=== PATIENT | female | born 1995 | race Caucasian/White ===

== ENCOUNTER 2017-02-03 16:39 | Emergency (ER) | payer MEDICAID ==
[2017-02-03 17:12] VITALS: BP 121/63; PULSE 77; RESP 19; TEMP 97.6; O2SAT 100
[2017-02-03] MEDS ORDERED: Albuterol-Ipratrop 3 mg / 0.5 (3 ml) UD INH STA (17:35)
--- NOTE | 2017-02-03 17:36 | ED PDOC ---
HPI: General Adult Time Seen by Provider: 02/03/17 17:20 Chief Complaint (Nursing): Flu-like Symptoms Chief Complaint (Provider): Cough, Nausea, Vomiting History Per: Patient History/Exam Limitations: no limitations Onset/Duration Of Symptoms: Days (x1) Current Symptoms Are (Timing): Still Present Additional Complaint(s): Concepción Clemens is a 21 year old female that presents to the ED with a chief complaint of coughing, post-tussive vomiting, nausea, and a sore throat that she has been experiencing for the past day. Patient denies any abdominal pain, dysuria, or sick contacts. She denies chest pain, SOB or FABIAN. No recent travel. Patient states she cannot keep down any liquids or solids. Past Medical History Reviewed: Historical Data, Nursing Documentation, Vital Signs Vital Signs: Last Vital Signs Temp 97.6 F 02/03/17 17:07 Pulse 77 02/03/17 17:07 Resp 19 02/03/17 17:07 BP 121/63 02/03/17 17:07 Pulse Ox 100 02/03/17 18:52 - Medical History PMH: No Chronic Diseases - Surgical History Surgical History: No Surg Hx - Family History Family History: States: No Known Family Hx - Living Arrangements Living Arrangements: With Family - Social History Current smoker - smoking cessation education provided: No Alcohol: None Drugs: Denies - Home Medications Home Medications: Ambulatory Orders Medication Instructions Recorded Acetaminophen [Tylenol] 325 mg PO Q6 PRN #30 tab 12/17/16 Naproxen [Naprosyn] 500 mg PO BID #20 tab 12/17/16 Albuterol HFA [Ventolin HFA 90 1 puff IH ASDIR #1 unit 02/03/17 mcg/actuation (8 g)] Azithromycin [Zithromax] 250 mg PO DAILY #6 tab 02/03/17 Benzonatate 200 mg PO TID PRN #20 capsule 02/03/17 Ondansetron [Zofran Odt] 4 mg PO ASDIR PRN #8 odt 02/03/17 - Allergies Allergies/Adverse Reactions: Allergies Allergy/AdvReac Type Severity Reaction Status Date / Time No Known Allergies Allergy Verified 11/17/16 04:34 Review of Systems ROS Statement: Except As Marked, All Systems Reviewed And Found Negative ENT: Positive for: Throat Pain (sore throat) Respiratory: Positive for: Cough Gastrointestinal: Positive for: Nausea, Vomiting. Negative for: Abdominal Pain Genitourinary Female: Negative for: Dysuria Neurological: Negative for: Headache, Dizziness Physical Exam - Reviewed Nursing Documentation Reviewed: Yes Vital Signs Reviewed: Yes - Physical Exam Appears: Positive for: Non-toxic, No Acute Distress Head Exam: Positive for: ATRAUMATIC, NORMOCEPHALIC Skin: Positive for: Normal Color, Warm Eye Exam: Positive for: Normal appearance, EOMI, PERRL ENT: Positive for: Pharyngeal Erythema, Tonsillar Swelling (bilaterally), Other (tonsillar erythema bilaterally, uvula midline). Negative for: Tonsillar Exudate (bilaterally) Neck: Positive for: Painless ROM Cardiovascular/Chest: Positive for: Regular Rate, Rhythm. Negative for: Murmur Respiratory: Positive for: Normal Breath Sounds, Wheezing (bilaterally) Gastrointestinal/Abdominal: Positive for: Soft. Negative for: Tenderness Lymphatic: Positive for: Adenopathy (bilateral anterior cervical lymph adenopathy) Neurologic/Psych: Positive for: Alert, Oriented - Laboratory Results Urine POC: Negative - ECG O2 Sat by Pulse Oximetry: 100 (RA) Pulse Ox Interpretation: Normal - Other Rad CXR X-Ray: Interpreted by Me, Viewed By Me X-Ray Interpretation: no active disease Nebulizer Treatments/Peak Flow - Duonebs Number of Bronchodilator Doses given?: 1 (duoneb) - Pre/Post Peak Flow Pre Treatment Peak Flow: 250 Post treatment Peak Flow: 300 - Steroid Treatment Steroid: Not Clinically Indicated - Clinical Response Clinical Response: Improved Medical Decision Making Medical Decision Making: Impression: Flu-Like Symptoms Plan: * Urine * Zofran 4 mg IM * Albuterol 3 ml INH * Nebulizer Treatment * Peak Flow Pre/Post Tx * Throat Culture * Flu Swab * Rapid Strep * Reevaluation Patient was able to tolerate water in ED with no further emesis. Nausea resolved. Patient is aware of all diagnostic testing results, all questions answered. Prescriptions given for Zithromax, Tessalon Perles, Ventolin inhaler and Zofran. Patient was advised to rest and drink plenty of fluids. She was advised to follow up with primary doctor in 2-3 days. Scribe Attestation: Documented by Nilsa Hernandez, acting as a scribe for Barb Tan PA-C. Provider Scribe Attestation: All medical record entries made by the Scribe were at my direction and personally dictated by me. I have reviewed the chart and agree that the record accurately reflects my personal performance of the history, physical exam, medical decision making, and the department course for this patient. I have also personally directed, reviewed, and agree with the discharge instructions and disposition. Disposition - Clinical Impression Clinical Impression: Bronchitis, Pharyngitis - Patient ED Disposition Is Patient to be Admitted: No Counseled Patient/Family Regarding: Studies Performed, Diagnosis, Need For Followup, Rx Given - Disposition Referrals: [facility] [Outside] Disposition: Routine/Home Disposition Time: 18:56 Condition: STABLE Additional Instructions: Take rx meds as directed. Take [id number] Tylenol or Advil for pain or body aches. Follow up in 2-3 days with primary care doctor or with clinic. Prescriptions: Albuterol HFA [Ventolin HFA 90 mcg/actuation (8 g)] 1 puff IH ASDIR #1 unit Azithromycin [Zithromax] 250 mg PO DAILY #6 tab Benzonatate 200 mg PO TID PRN #20 capsule PRN Reason: Cough Ondansetron [Zofran Odt] 4 mg PO ASDIR PRN #8 odt PRN Reason: Nausea/Vomiting Instructions: Acute Bronchitis (ED), Pharyngitis (ED) Forms: [facility] ED School/Work Excuse
[2017-02-03] MEDS ORDERED: Albuterol-Ipratrop 3 mg / 0.5 (3 ml) UD ONE (17:51)
--- NOTE | 2017-02-03 18:13 | RAD ---
HISTORY: Cough. COMPARISON: No prior. TECHNIQUE: Chest PA and lateral FINDINGS: LUNGS: No active pulmonary disease. PLEURA: No significant pleural effusion identified. No pneumothorax apparent. CARDIOVASCULAR: Normal. OSSEOUS STRUCTURES: No significant abnormalities. VISUALIZED UPPER ABDOMEN: Normal. OTHER FINDINGS: None. IMPRESSION: No active disease.
== END 2017-02-03 19:40 | disposition home or self-care (01) ==
LOC: H.ER 16:39
DX: J40 Bronchitis, not specified as acute or chronic (principal); R11.2 Nausea with vomiting, unspecified; J02.9 Acute pharyngitis, unspecified; R05 Cough
CPT/HCPCS: 71020; 81025; 87070; 87430; 87804; 94640; 96372; 99282; J2405

== ENCOUNTER 2017-10-27 22:02 | Observation (INO) | payer MEDICAID ==
[2017-10-27] MEDS ORDERED: Lactated Ringer's 1,000 ML IV STA (22:27)
--- NOTE | 2017-10-27 22:33 | ED PDOC ---
HPI: Abdomen Time Seen by Provider: 10/27/17 22:16 Chief Complaint (Nursing): Abdominal Pain Chief Complaint (Provider): RIGHT abd/flank pain History Per: Patient History/Exam Limitations: no limitations Onset/Duration Of Symptoms: Days (1) Outside of [place] travel?: Yes Current Symptoms Are (Timing): Still Present Location Of Pain/Discomfort: RLQ (radiating to RIGHT flank) Quality Of Discomfort: Aching, "Pain". denies: Sharp, Dull, Cramping, Burning, Stabbing Associated Symptoms: Urinary Symptoms (frequency for 1 week). denies: Fever, Chills, Nausea, Vomiting, Loss Of Appetite Exacerbating Factors: Supine Alleviating Factors: None Additional Complaint(s): Seen in [place] ER for abd pain in . Initially associated with RIGHT flank pain which has resolved. Found to have leuks in urine, concern for pyelonephritis, and transferred to this ER for SHIPPING AND RECEIVING evaluation. US performed in [place] with no abnormalities. Past Medical History Reviewed: Historical Data, Nursing Documentation, Vital Signs Vital Signs: Last Vital Signs Temp 99.1 F 10/27/17 22:06 Pulse 104 H 10/27/17 22:06 Resp 22 10/27/17 22:06 BP 98/51 L 10/27/17 22:06 Pulse Ox 100 10/27/17 22:36 - Medical History PMH: No Chronic Diseases - Family History Family History: States: Unknown Family Hx - Social History Current smoker - smoking cessation education provided: No - Immunization History Hx Tetanus Toxoid Vaccination: Yes Hx Influenza Vaccination: No (08/2015) Hx Pneumococcal Vaccination: No - Home Medications Home Medications: Ambulatory Orders Medication Instructions Recorded Nitrofurantoin Macrocrystals 100 mg PO BID #14 cap 08/07/17 [Macrobid] - Allergies Allergies/Adverse Reactions: Allergies Allergy/AdvReac Type Severity Reaction Status Date / Time No Known Allergies Allergy Verified 08/07/17 15:37 Review of Systems ROS Statement: Except As Marked, All Systems Reviewed And Found Negative (and as per HPI) Constitutional: Positive for: Chills. Negative for: Weakness, Malaise Gastrointestinal: Positive for: Abdominal Pain Genitourinary Female: Positive for: Dysuria, Frequency, Vaginal Discharge. Negative for: Vaginal Bleeding, Pelvic Pain Physical Exam - Reviewed Nursing Documentation Reviewed: Yes Vital Signs Reviewed: Yes - Physical Exam Appears: Positive for: Non-toxic, In Acute Distress (mild painful) Head Exam: Positive for: ATRAUMATIC, NORMOCEPHALIC Skin: Positive for: Warm, Dry Eye Exam: Positive for: EOMI, PERRL ENT: Positive for: Other (tacky mucus membranes) Neck: Positive for: Painless ROM, Supple Gastrointestinal/Abdominal: Positive for: Other (gravid uterus, mild ttp RIGHT pelvic area) Back: Positive for: R CVA Tenderness Extremity: Positive for: Normal ROM. Negative for: Deformity Lymphatic: Negative for: Adenopathy Neurologic/Psych: Positive for: Alert. Negative for: Motor/Sensory Deficits - ECG O2 Sat by Pulse Oximetry: 100 - Progress ED Course And Treament: evaluated by Dr Vallejo in ER who advised hospitalization for serial abdominal exams, and high risk of complications in pyelonephritis in . Disposition - Clinical Impression Clinical Impression: Pyelonephritis, Abdominal pain during - Disposition Disposition Time: 22:45 Condition: FAIR - Pt Status Changed To: Hospital Disposition Of: Observation - POA Present On Arrival: None
--- NOTE | 2017-10-27 23:21 | CP.PCM.HP ---
History of Present Illness - History of Present Illness History of Present Illness: 21 yo female at 16 weeks 3 days gestational age by LMP 07/04/17, presented to [place] ED, and was transferred to [place] ED today complaining of right sided back and pelvic pain. States the pain started this morning, and she was pain free yesterday. Rates pain 10/10, and states it is difficult for her to walk. care at [facility]. Next appt scheduled 11/07/17. ObGYN hx: menarche at age 13, period q28 days, 4 days duration. Denies hx STDs. L ovarian cyst in the past. ED course: -UA positive for moderate leuk esterase, moderate bacteria -CMP wnl -CBC no elevated wbc. anemia. -Received 1gm rocephin at [place] -Hydrated with LR -Blood bank: O pos, antibody neg -Ultrasound done at [place]: Ultrasound:FINDINGS: UTERUS: Single viable intrauterine gestation identified in variable lie with an anterior fundal placenta. No definite evidence to suggest placental abruption or previa at this time. Internal cervical os is closed with the cervix measuring 3.2 cm. No suspicious myometrial pathology evident grossly. The uterus is anteverted. The following mean biometry was obtained: BPD 4.0 cm corresponds to 18 weeks 0 days. HC 14.3 cm corresponds to 17 weeks 4 days. AC 111.3 cm corresponds to 17 weeks 3 days. FL 2.3 cm corresponds to 16 weeks 6 days. HC/AC ratio falls within normal range at 1.23. Average ultrasonic age is 17 weeks 3 days which is in agreement with menstrual dates of 16 weeks 3 days and also agrees with prior ultrasound 2016. cardiac activity is recorded at 143 beats per minute. biometry is limited with the four-chamber heart views submitted. The stomach appears unremarkable urinary bladder is identified. CERVIX: Measures 3.2 cm cm. Long and closed. No cervical abnormality seen. RIGHT OVARY: Not identified. LEFT OVARY: Not identified. FREE FLUID: None. OTHER FINDINGS: None. IMPRESSION: A single viable intrauterine gestation identified with average around age of 17 weeks 3 days which represents normal interval growth. Limited biometry. All biometry available on elective basis as clinically warranted. Present on Admission - Present on Admission Any Indicators Present on Admission: No Review of Systems - Review of Systems All systems: reviewed and no additional remarkable complaints except - Gastrointestinal Gastrointestinal: Abdominal Pain, Constipation - Genitourinary Genitourinary: Flank Pain - Musculoskeletal Musculoskeletal: Back Pain (R flank) Past Patient History - Infectious Disease Hx of Infectious Diseases: None - Past Social History Smoking Status: Never Smoked Alcohol: None Drugs: Denies - CARDIAC Hx Cardiac Disorders: No - PULMONARY Hx Respiratory Disorders: No - NEUROLOGICAL Hx Neurological Disorder: No - HEENT Hx HEENT Problems: No - RENAL Hx Chronic Kidney Disease: No - ENDOCRINE/METABOLIC Hx Endocrine Disorders: No - HEMATOLOGICAL/ONCOLOGICAL Hx Blood Disorders: No - INTEGUMENTARY Hx Dermatological Problems: No - MUSCULOSKELETAL/RHEUMATOLOGICAL Hx Musculoskeletal Disorders: No - GASTROINTESTINAL Hx Gastrointestinal Disorders: No - GENITOURINARY/GYNECOLOGICAL Hx Genitourinary Disorders: Yes Other/Comment: ovarian cyst - PSYCHIATRIC Hx Psychophysiologic Disorder: No Hx Substance Use: No - SURGICAL HISTORY Hx Surgeries: No - ANESTHESIA Hx Anesthesia: No Meds Allergies/Adverse Reactions: Allergies Allergy/AdvReac Type Severity Reaction Status Date / Time No Known Allergies Allergy Verified 08/07/17 15:37 Physical Exam - Constitutional Appears: Non-toxic - Head Exam Head Exam: ATRAUMATIC, NORMAL INSPECTION - Eye Exam Eye Exam: Normal appearance - Neck Exam Neck exam: Positive for: Normal Inspection - Respiratory Exam Respiratory Exam: Clear to Auscultation Bilateral, NORMAL BREATHING PATTERN - Cardiovascular Exam Cardiovascular Exam: REGULAR RHYTHM, +S1, +S2 - GI/Abdominal Exam GI & Abdominal Exam: Soft, Tenderness (mild tenderness, R sided, low pelvic) - Extremities Exam Extremities exam: Positive for: normal inspection. Negative for: calf tenderness, pedal edema, tenderness - Back Exam Back exam: CVA tenderness (R), NORMAL INSPECTION. absent: CVA tenderness (L) - Neurological Exam Neurological exam: Alert, CN II-XII Intact, Oriented x3 - Psychiatric Exam Psychiatric exam: Normal Affect - Skin Skin Exam: Dry, Intact Results - Vital Signs Recent Vital Signs: Last Vital Signs Temp 99.1 F 10/27/17 22:06 Pulse 104 H 10/27/17 22:06 Resp 22 10/27/17 22:06 BP 98/51 L 10/27/17 22:06 Pulse Ox 100 10/27/17 22:36 Assessment & Plan - Assessment and Plan (Free Text) Assessment: 21 yo F at 16+3 weeks gestation, with UTI; suspected pyelonephritis. s/p rocephin 1 gm x1. Plan: Admit/observe pt overnight. NPO CBC and CMP in am. Sennosides A&B for constipation. Reassess in morning. Pt seen/discussed w/ Dr. Vallejo.
[2017-10-28] MEDS: Lactated Ringer's 1,000 ML IV SCH ×3 (01:18→19:12)
[2017-10-28 07:37] LABS: BASO # 0.1 K/uL (0.0-0.2); BASO % 0.6 % (0.0-2.0); EOS # 0.3 K/uL (0.0-0.7); EOS % 2.6 % (0.0-4.0); HEMOGLOBIN 9.2 g/dL (12.0-16.0); LYMPH # 1.9 K/uL (1.0-4.3); LYMPH % 19.4 % (20.0-40.0); MEAN CORPUSCULAR HEMOGLOBIN 27.9 pg (27.0-31.0); MEAN CORPUSCULAR HGB CONC 32.5 g/dL (33.0-37.0); MEAN PLATELET VOLUME 11.8 fl (7.2-11.7); MONO # 0.7 K/uL (0.0-0.8); MONO % 6.9 % (0.0-10.0); NEUT # 7.1 K/uL (1.8-7.0); NEUT % 70.5 % (50.0-75.0); RBC 3.3 Mil/uL (3.80-5.20)
[2017-10-28 08:21] LABS: ALBUMIN 2.9 g/dL (3.5-5.0); ALT/SGPT 26 U/L (9-52); AST/SGOT 19 U/L (14-36); BLOOD UREA NITROGEN 12 mg/dl (7-17); CALCIUM 8.5 mg/dL (8.4-10.2); GFR AFRICAN-AMERICAN > 60; GFR NON-AFRICAN AMERICAN > 60
--- NOTE | 2017-10-28 15:00 | CP.PCM.CON ---
Addendum entered and electronically signed by Sandy Nguyen DO 10/28/17 19:00: MRI negative for appendicitis. No surgical intervention at this time. OK to start pt on CLD and ADAT to regular diet. Further mgmt as per primary and Obgyn teams. Thank you for this consult. Pt seen/examined and case DW with attending Original Note: <Sandy Nguyen - Last Filed: 10/28/17 19:00> History of Present Illness - History of Present Illness History of Present Illness: General surgery consult note for Dr. Rodriguez-Sandy Nguyen, PGY-1 Pt S & E at bedside. 21yo female (17 wks, 3 days gestation) consulted for RLQ and suprapubic abdominal pain x 1 day. Pt reports sudden onset of pain upon waking 1 day prior to evaluation, was very debilitated by it, could not walk. Pain is constant, variable intensity, cramping/sharp, radiates to back. Worsened with urinating and palpation. Admits to constipation (3 days, usually has daily BM) , had similar but less intense episode of abdominal pain earlier in her . Currently taking vitamins. Denies recent illness, N & V, diarrhea, anorexia, other complaints. No leukocytosis, afebrile, abdominal U/S did not visualize appendix. PMH: Denies PSH: Denies All:NKDA SH: Denies ETOH, tobacco or illicit drug use Review of Systems - Review of Systems All systems: reviewed and no additional remarkable complaints except - Constitutional Constitutional: Headache. absent: Chills, Fever - EENT Eyes: absent: Change in Vision Nose/Mouth/Throat: absent: Sore Throat - Cardiovascular Cardiovascular: absent: Chest Pain, Palpitations - Respiratory Respiratory: absent: Cough - Gastrointestinal Gastrointestinal: Abdominal Pain, Change in Bowel Habits, Constipation. absent : Heartburn, Hematemesis, Nausea, Vomiting - Genitourinary Genitourinary: absent: Dysuria, Urinary Frequency - Integumentary Integumentary: absent: Rash - Neurological Neurological: absent: Weakness - Psychiatric Psychiatric: Change in Appetite (decreased) Past Patient History - Infectious Disease Hx of Infectious Diseases: None - Past Medical History & Family History Past Medical History?: Yes - Past Social History Smoking Status: Never Smoked - CARDIAC Hx Cardiac Disorders: No - PULMONARY Hx Respiratory Disorders: No - NEUROLOGICAL Hx Neurological Disorder: No - HEENT Hx HEENT Problems: No - RENAL Hx Chronic Kidney Disease: No - ENDOCRINE/METABOLIC Hx Endocrine Disorders: No - HEMATOLOGICAL/ONCOLOGICAL Hx Blood Disorders: No - INTEGUMENTARY Hx Dermatological Problems: No - MUSCULOSKELETAL/RHEUMATOLOGICAL Hx Falls: No - GASTROINTESTINAL Hx Gastrointestinal Disorders: No - GENITOURINARY/GYNECOLOGICAL Hx Genitourinary Disorders: Yes Other/Comment: ovarian cyst - PSYCHIATRIC Hx Substance Use: No - SURGICAL HISTORY Hx Surgeries: No - ANESTHESIA Hx Anesthesia: No Meds Allergies/Adverse Reactions: Allergies Allergy/AdvReac Type Severity Reaction Status Date / Time No Known Allergies Allergy Verified 08/07/17 15:37 - Medications Medications: Current Medications Acetaminophen (Tylenol 325mg Tab) 650 mg PO Q4 PRN PRN Reason: Pain, moderate (4-7) Lactated Ringer's (Lactated Ringer's) 1,000 mls @ 125 mls/hr IV .Q8H [facility] Last Admin: 10/28/17 08:57 Dose: Not Given Sennosides (Senokot Tab) 8.6 mg PO HS [facility] Last Admin: 10/28/17 03:16 Dose: 8.6 mg Physical Exam - Constitutional Appears: Non-toxic, No Acute Distress - Head Exam Head Exam: ATRAUMATIC, NORMAL INSPECTION, NORMOCEPHALIC - Eye Exam Eye Exam: EOMI, Normal appearance - ENT Exam ENT Exam: Mucous Membranes Moist, Normal Exam - Neck Exam Neck exam: Positive for: Full Rom, Normal Inspection - Respiratory Exam Respiratory Exam: NORMAL BREATHING PATTERN - Cardiovascular Exam Cardiovascular Exam: REGULAR RHYTHM, +S1, +S2 - GI/Abdominal Exam GI & Abdominal Exam: Distended (), Soft, Tenderness (RLQ, suprapubic, LLQ). absent: Firm, Guarding - Extremities Exam Extremities exam: Positive for: normal inspection. Negative for: pedal edema - Back Exam Back exam: NORMAL INSPECTION. absent: paraspinal tenderness, vertebral tenderness - Neurological Exam Neurological exam: Alert, CN II-XII Intact, Oriented x3 - Psychiatric Exam Psychiatric exam: Normal Affect, Normal Mood - Skin Skin Exam: Dry, Intact, Normal Color, Warm Results - Vital Signs Recent Vital Signs: Last Vital Signs Temp 97.8 F 10/28/17 08:40 Pulse 94 H 10/28/17 08:40 Resp 18 10/28/17 08:40 BP 107/59 L 10/28/17 08:40 Pulse Ox 98 10/28/17 08:40 - Labs Result Diagrams: 10/28/17 07:00 10/28/17 07:00 Labs: Laboratory Results - last 24 hr 10/28/17 10/28/17 07:00 07:00 WBC 10.0 RBC 3.30 L Hgb 9.2 L Hct 28.4 L MCV 86.0 MCH 27.9 MCHC 32.5 L RDW 14.0 Plt Count 141 MPV 11.8 H Neut % (Auto) 70.5 Lymph % (Auto) 19.4 L Webster % (Auto) 6.9 Eos % (Auto) 2.6 Baso % (Auto) 0.6 Neut # (Auto) 7.1 H Lymph # (Auto) 1.9 Webster # (Auto) 0.7 Eos # (Auto) 0.3 Baso # (Auto) 0.1 Sodium 138 Potassium 4.0 Chloride 107 Carbon Dioxide 22 Anion Gap 13 BUN 12 Creatinine 0.6 L Est GFR ( Amer) > 60 Est GFR (Non-Af Amer) > 60 Random Glucose 82 Calcium 8.5 Total Bilirubin 0.2 AST 19 ALT 26 Alkaline Phosphatase 46 Total Protein 5.8 L Albumin 2.9 L Globulin 2.8 Albumin/Globulin Ratio 1.0 Assessment & Plan - Assessment and Plan (Free Text) Assessment: 21 yo female with abdominal pain Plan: FU MRI NPO for now IVF Pain control Further recs pending imaging/attending evaluation Would recommend placing pt on a bowel regimen DW attending Wendy, PGY-1 - Date & Time Date: 10/28/17 Time: 15:02 <Ant Rodriguez - Last Filed: 10/28/17 19:21> History of Present Illness - History of Present Illness History of Present Illness: Patient was seen and examined at the bedside. Agree with resident's note above. MRI results noted. Meds - Medications Medications: Current Medications Acetaminophen (Tylenol 325mg Tab) 650 mg PO Q4 PRN PRN Reason: Pain, moderate (4-7) Lactated Ringer's (Lactated Ringer's) 1,000 mls @ 125 mls/hr IV .Q8H [facility] Last Admin: 10/28/17 19:12 Dose: 125 mls/hr Sennosides (Senokot Tab) 8.6 mg PO HS [facility] Last Admin: 10/28/17 03:16 Dose: 8.6 mg Results - Vital Signs Recent Vital Signs: Last Vital Signs Temp 98.8 F 10/28/17 16:15 Pulse 91 H 10/28/17 16:15 Resp 18 10/28/17 16:15 BP 104/63 10/28/17 16:15 Pulse Ox 100 10/28/17 16:15 - Labs Result Diagrams: 10/28/17 07:00 10/28/17 07:00 Labs: Laboratory Results - last 24 hr 10/28/17 10/28/17 07:00 07:00 WBC 10.0 RBC 3.30 L Hgb 9.2 L Hct 28.4 L MCV 86.0 MCH 27.9 MCHC 32.5 L RDW 14.0 Plt Count 141 MPV 11.8 H Neut % (Auto) 70.5 Lymph % (Auto) 19.4 L Webster % (Auto) 6.9 Eos % (Auto) 2.6 Baso % (Auto) 0.6 Neut # (Auto) 7.1 H Lymph # (Auto) 1.9 Webster # (Auto) 0.7 Eos # (Auto) 0.3 Baso # (Auto) 0.1 Sodium 138 Potassium 4.0 Chloride 107 Carbon Dioxide 22 Anion Gap 13 BUN 12 Creatinine 0.6 L Est GFR ( Amer) > 60 Est GFR (Non-Af Amer) > 60 Random Glucose 82 Calcium 8.5 Total Bilirubin 0.2 AST 19 ALT 26 Alkaline Phosphatase 46 Total Protein 5.8 L Albumin 2.9 L Globulin 2.8 Albumin/Globulin Ratio 1.0 Assessment & Plan - Assessment and Plan (Free Text) Plan: - Advance diet as tolerated - No evidence of appendicitis on the MRI and at present time patient states that abdominal pain is much better - No general surgery intervention at present time - Will follow
--- NOTE | 2017-10-28 16:16 | MRI ---
PROCEDURE: HISTORY: r/o appendicitis, COMPARISON: TECHNIQUE: FINDINGS: Evaluation demonstrates a gravid uterus. No gross abdominal pelvic visceral abnormality is observed. There is no significant pelvic ascites. There is no gross evidence of appendicitis. IMPRESSION: No gross evidence of appendicitis. Carotid uterus. Please note that this examination does not assess the helpful or a the viability of the fetus.
--- NOTE | 2017-10-28 16:18 | US ---
HISTORY: RLQ pain, COMPARISON: None. TECHNIQUE: Sonographic evaluation of the abdomen. FINDINGS: LIVER: Measures cm. Normal echogenicity of the liver parenchyma. No mass. No intrahepatic bile duct dilatation. GALLBLADDER: Unremarkable. No gallstones. COMMON BILE DUCT: Measures mm. No stones. No dilatation. PANCREAS: Unremarkable as visualized. No mass. No ductal dilatation. RIGHT KIDNEY: Measures cm. Normal echogenicity. No calculus, mass, or hydronephrosis. LEFT KIDNEY: Measures cm. Normal echogenicity. No calculus, mass, or hydronephrosis. SPLEEN: Normal in size and contour. No mass. AORTA: No aneurysmal dilatation. IVC: Unremarkable. OTHER FINDINGS: None. IMPRESSION: Unremarkable abdominal sonogram.
--- NOTE | 2017-10-28 19:00 | CP.PCM.PN ---
Subjective - Date & Time of Evaluation Date of Evaluation: 10/28/17 Time of Evaluation: 09:00 - Subjective Subjective: No acute overnight events. Pt seen and evaluated at the bedside this morning. Reports that her abdominal pain has improved since yesterday. She states that she is having mild dysuria and urinary frequency. No BM in 3 days. Denies fever , chills n/v. Pt states that she is hungry and would like to eat. Objective - Vital Signs/Intake and Output Vital Signs (last 24 hours): Temp Pulse Resp BP Pulse Ox 98.8 F 91 H 18 104/63 100 10/28/17 16:15 10/28/17 16:15 10/28/17 16:15 10/28/17 16:15 10/28/17 16:15 - Medications Medications: Current Medications Acetaminophen (Tylenol 325mg Tab) 650 mg PO Q4 PRN PRN Reason: Pain, moderate (4-7) Lactated Ringer's (Lactated Ringer's) 1,000 mls @ 125 mls/hr IV .Q8H [facility] Last Admin: 10/28/17 08:57 Dose: Not Given Sennosides (Senokot Tab) 8.6 mg PO HS [facility] Last Admin: 10/28/17 03:16 Dose: 8.6 mg - Labs Labs: 10/28/17 07:00 10/28/17 07:00 - Constitutional Appears: Well, Non-toxic, No Acute Distress - Respiratory Exam Respiratory Exam: Clear to Ausculation Bilateral - Cardiovascular Exam Cardiovascular Exam: RRR, +S1, +S2. absent: Murmur - GI/Abdominal Exam GI & Abdominal Exam: Soft, Tenderness (Tender to palpation in RLQ, LRQ, Mild R. CVA tenderness, no rebound tenderness), Normal Bowel Sounds. absent: Distended , Firm, Guarding, Rigid, Organomegaly Additional comments: Gravid - Extremities Exam Extremities Exam: absent: Calf Tenderness - Back Exam Back Exam: CVA tenderness (R) (Mild) - Neurological Exam Neurological Exam: Alert, Awake, Oriented x3 - Psychiatric Exam Psychiatric exam: Normal Affect Assessment and Plan - Assessment and Plan (Free Text) Assessment: Pt is a G1PO with IUP at 6wks presenting with acute RLQ, urinary symptoms. Pain-improving Vitals stable overnight, afebrile No leukocytosis Transvaginal US wnl Abdominal US wnl MRI- no acute appendicitis General Surgery Consult appreciated Plan: Continue to monitor patient. Will advance diet. Reassess pt in the am. Pain, controlled. F/U Urinalysis and UCx. Discussed case with OB Attending, Dr. Suero
[2017-10-29 00:34] VITALS: O2SAT 99
[2017-10-29 00:51] LABS: SQUAMOUS EPITHIAL 19 /hpf (0-5); URINE BACTERIA MOD (<OCC); URINE BILIRUBIN NEGATIVE (NEGATIVE); URINE BLOOD NEGATIVE (NEGATIVE); URINE CLARITY CLOUDY (Clear); URINE COLOR YELLOW (YELLOW); URINE GLUCOSE (UA) NEG (Normal); URINE LEUKOCYTE ESTERASE LARGE Leu/uL (Negative); URINE NITRATE NEGATIVE (NEGATIVE); URINE PROTEIN NEGATIVE (NEGATIVE); URINE UROBILINOGEN 0.2-1.0 mg/dL (0.2-1.0)
[2017-10-29 08:12] VITALS: BP 89/56; PULSE 82; RESP 18; TEMP 98
--- NOTE | 2017-10-29 11:13 | CP.PCM.PN ---
Subjective - Date & Time of Evaluation Date of Evaluation: 10/29/17 Time of Evaluation: 09:45 - Subjective Subjective: General Surgeyr Dr. Rodriguez Pt S&E @bedside. NAEO. pt has no complaints. denies abd pain, N/V, F/C. tolerating regular diet. Objective - Vital Signs/Intake and Output Vital Signs (last 24 hours): Temp Pulse Resp BP Pulse Ox 98.0 F 82 18 89/56 L 99 10/29/17 08:11 10/29/17 08:11 10/29/17 08:11 10/29/17 08:11 10/29/17 08:11 - Medications Medications: Current Medications Acetaminophen (Tylenol 325mg Tab) 650 mg PO Q4 PRN PRN Reason: Pain, moderate (4-7) Lactated Ringer's (Lactated Ringer's) 1,000 mls @ 125 mls/hr IV .Q8H [facility] Last Admin: 10/28/17 19:12 Dose: 125 mls/hr Sennosides (Senokot Tab) 8.6 mg PO HS [facility] Last Admin: 10/28/17 21:37 Dose: 8.6 mg - Labs Labs: 10/28/17 07:00 10/28/17 07:00 - Constitutional Appears: Non-toxic, No Acute Distress - Head Exam Head Exam: NORMAL INSPECTION - Eye Exam Eye Exam: Normal appearance - ENT Exam ENT Exam: Mucous Membranes Moist - Respiratory Exam Respiratory Exam: NORMAL BREATHING PATTERN. absent: Accessory Muscle Use, Respiratory Distress - GI/Abdominal Exam GI & Abdominal Exam: Soft. absent: Distended, Tenderness - Extremities Exam Extremities Exam: Normal Inspection - Neurological Exam Neurological Exam: Alert, Awake, Oriented x3 - Psychiatric Exam Psychiatric exam: Normal Affect, Normal Mood - Skin Skin Exam: Dry, Intact, Normal Color, Warm Assessment and Plan - Assessment and Plan (Free Text) Assessment: 21 y/o F w/ resolved RLQ abd pain - Plan: - No surgical intervention at this time - ADAT - Further management as per PMD and Obgyn teams. - pt cleared for discharge from surgical standpoint Pt discussed w/ Dr. Rodriguez
--- NOTE | 2017-10-29 11:50 | CP.PCM.DIS ---
Addendum entered and electronically signed by Ubaldo Nugyen MD 10/29/17 12:51: Clarification: Pt is 17 weeks EGA. not 6. Original Note: <Ubaldo Nguyen - Last Filed: 10/29/17 11:50> Provider - Provider Date of Admission: 10/27/17 22:50 Attending physician: Elizabeth Vallejo MD Time Spent in preparation of Discharge (in minutes): 25 Hospital Course - Lab Results Lab Results: Most Recent Lab Values WBC 10.0 K/uL (4.8-10.8) 10/28/17 07:00 RBC 3.30 Mil/uL (3.80-5.20) L 10/28/17 07:00 Hgb 9.2 g/dL (12.0-16.0) L 10/28/17 07:00 Hct 28.4 % (34.0-47.0) L 10/28/17 07:00 MCV 86.0 fl (81.0-99.0) 10/28/17 07:00 MCH 27.9 pg (27.0-31.0) 10/28/17 07:00 MCHC 32.5 g/dL (33.0-37.0) L 10/28/17 07:00 RDW 14.0 % (11.5-14.5) 10/28/17 07:00 Plt Count 141 K/uL (130-400) 10/28/17 07:00 MPV 11.8 fl (7.2-11.7) H 10/28/17 07:00 Neut % (Auto) 70.5 % (50.0-75.0) 10/28/17 07:00 Lymph % (Auto) 19.4 % (20.0-40.0) L 10/28/17 07:00 [place] % (Auto) 6.9 % (0.0-10.0) 10/28/17 07:00 Eos % (Auto) 2.6 % (0.0-4.0) 10/28/17 07:00 Baso % (Auto) 0.6 % (0.0-2.0) 10/28/17 07:00 Neut # (Auto) 7.1 K/uL (1.8-7.0) H 10/28/17 07:00 Lymph # (Auto) 1.9 K/uL (1.0-4.3) 10/28/17 07:00 [place] # (Auto) 0.7 K/uL (0.0-0.8) 10/28/17 07:00 Eos # (Auto) 0.3 K/uL (0.0-0.7) 10/28/17 07:00 Baso # (Auto) 0.1 K/uL (0.0-0.2) 10/28/17 07:00 Sodium 138 mmol/l (132-148) 10/28/17 07:00 Potassium 4.0 MMOL/L (3.6-5.0) 10/28/17 07:00 Chloride 107 mmol/L (98-107) 10/28/17 07:00 Carbon Dioxide 22 mmol/L (22-30) 10/28/17 07:00 Anion Gap 13 (10-20) 10/28/17 07:00 BUN 12 mg/dl (7-17) 10/28/17 07:00 Creatinine 0.6 mg/dl (0.7-1.2) L 10/28/17 07:00 Est GFR ( Amer) > 60 10/28/17 07:00 Est GFR (Non-Af Amer) > 60 10/28/17 07:00 Random Glucose 82 mg/dL (65-105) 10/28/17 07:00 Calcium 8.5 mg/dL (8.4-10.2) 10/28/17 07:00 Total Bilirubin 0.2 mg/dl (0.2-1.3) 10/28/17 07:00 AST 19 U/L (14-36) 10/28/17 07:00 ALT 26 U/L (9-52) 10/28/17 07:00 Alkaline Phosphatase 46 U/L (38-126) 10/28/17 07:00 Total Protein 5.8 G/DL (6.3-8.2) L 10/28/17 07:00 Albumin 2.9 g/dL (3.5-5.0) L 10/28/17 07:00 Globulin 2.8 gm/dL (2.2-3.9) 10/28/17 07:00 Albumin/Globulin Ratio 1.0 (1.0-2.1) 10/28/17 07:00 Urine Color Yellow (YELLOW) 10/28/17 23:52 Urine Clarity Cloudy (Clear) 10/28/17 23:52 Urine pH 7.0 (5.0-8.0) 10/28/17 23:52 Ur Specific [place] 1.015 (1.003-1.030) 10/28/17 23:52 Urine Protein Negative mg/dL (NEGATIVE) 10/28/17 23:52 Urine Glucose (UA) Neg mg/dL (Normal) 10/28/17 23:52 Urine Ketones 20 mg/dL (NEGATIVE) 10/28/17 23:52 Urine Blood Negative (NEGATIVE) 10/28/17 23:52 Urine Nitrate Negative (NEGATIVE) 10/28/17 23:52 Urine Bilirubin Negative (NEGATIVE) 10/28/17 23:52 Urine Urobilinogen 0.2-1.0 mg/dL (0.2-1.0) 10/28/17 23:52 Ur Leukocyte Esterase Large Kimberly/uL (Negative) 10/28/17 23:52 Urine RBC (Auto) 9 /hpf (0-3) H 10/28/17 23:52 Urine Microscopic WBC 17 /hpf (0-5) H 10/28/17 23:52 Ur Squamous Epith Cells 19 /hpf (0-5) H 10/28/17 23:52 Urine Bacteria Mod (<OCC) H 10/28/17 23:52 - Hospital Course Hospital Course: 21 yo IUP EGA 6 wks presented with RLQ and lumbar pain. Abx: Rocephin. UC& S. Cleared by surgery. Pt dc home and has f/u appt at [facility] 11/07/2017. Discharge Exam - Head Exam Head Exam: NORMAL INSPECTION Discharge Plan - Follow Up Plan Condition: FAIR Disposition: HOME/ ROUTINE Instructions: Urinary Tract Infection in Women (DC), Urinary Tract Infection in Men (DC), Dysuria (GEN) Additional Instructions: Drink plenty of PO fluids May take Senokot or Metamucil ( over the counter)at home for constipation, if No BM return to ER if needed [facility]- Tel Phone #- [phone] or for OB clinic- [phone] <Margarette Venegas - Last Filed: 10/29/17 13:32> Provider - Provider Date of Admission: 10/27/17 22:50 Attending physician: Elizabeth Vallejo MD Hospital Course - Lab Results Lab Results: Most Recent Lab Values WBC 10.0 K/uL (4.8-10.8) 10/28/17 07:00 RBC 3.30 Mil/uL (3.80-5.20) L 10/28/17 07:00 Hgb 9.2 g/dL (12.0-16.0) L 10/28/17 07:00 Hct 28.4 % (34.0-47.0) L 10/28/17 07:00 MCV 86.0 fl (81.0-99.0) 10/28/17 07:00 MCH 27.9 pg (27.0-31.0) 10/28/17 07:00 MCHC 32.5 g/dL (33.0-37.0) L 10/28/17 07:00 RDW 14.0 % (11.5-14.5) 10/28/17 07:00 Plt Count 141 K/uL (130-400) 10/28/17 07:00 MPV 11.8 fl (7.2-11.7) H 10/28/17 07:00 Neut % (Auto) 70.5 % (50.0-75.0) 10/28/17 07:00 Lymph % (Auto) 19.4 % (20.0-40.0) L 10/28/17 07:00 [place] % (Auto) 6.9 % (0.0-10.0) 10/28/17 07:00 Eos % (Auto) 2.6 % (0.0-4.0) 10/28/17 07:00 Baso % (Auto) 0.6 % (0.0-2.0) 10/28/17 07:00 Neut # (Auto) 7.1 K/uL (1.8-7.0) H 10/28/17 07:00 Lymph # (Auto) 1.9 K/uL (1.0-4.3) 10/28/17 07:00 [place] # (Auto) 0.7 K/uL (0.0-0.8) 10/28/17 07:00 Eos # (Auto) 0.3 K/uL (0.0-0.7) 10/28/17 07:00 Baso # (Auto) 0.1 K/uL (0.0-0.2) 10/28/17 07:00 Sodium 138 mmol/l (132-148) 10/28/17 07:00 Potassium 4.0 MMOL/L (3.6-5.0) 10/28/17 07:00 Chloride 107 mmol/L (98-107) 10/28/17 07:00 Carbon Dioxide 22 mmol/L (22-30) 10/28/17 07:00 Anion Gap 13 (10-20) 10/28/17 07:00 BUN 12 mg/dl (7-17) 10/28/17 07:00 Creatinine 0.6 mg/dl (0.7-1.2) L 10/28/17 07:00 Est GFR ( Amer) > 60 10/28/17 07:00 Est GFR (Non-Af Amer) > 60 10/28/17 07:00 Random Glucose 82 mg/dL (65-105) 10/28/17 07:00 Calcium 8.5 mg/dL (8.4-10.2) 10/28/17 07:00 Total Bilirubin 0.2 mg/dl (0.2-1.3) 10/28/17 07:00 AST 19 U/L (14-36) 10/28/17 07:00 ALT 26 U/L (9-52) 10/28/17 07:00 Alkaline Phosphatase 46 U/L (38-126) 10/28/17 07:00 Total Protein 5.8 G/DL (6.3-8.2) L 10/28/17 07:00 Albumin 2.9 g/dL (3.5-5.0) L 10/28/17 07:00 Globulin 2.8 gm/dL (2.2-3.9) 10/28/17 07:00 Albumin/Globulin Ratio 1.0 (1.0-2.1) 10/28/17 07:00 Urine Color Yellow (YELLOW) 10/28/17 23:52 Urine Clarity Cloudy (Clear) 10/28/17 23:52 Urine pH 7.0 (5.0-8.0) 10/28/17 23:52 Ur Specific [place] 1.015 (1.003-1.030) 10/28/17 23:52 Urine Protein Negative mg/dL (NEGATIVE) 10/28/17 23:52 Urine Glucose (UA) Neg mg/dL (Normal) 10/28/17 23:52 Urine Ketones 20 mg/dL (NEGATIVE) 10/28/17 23:52 Urine Blood Negative (NEGATIVE) 10/28/17 23:52 Urine Nitrate Negative (NEGATIVE) 10/28/17 23:52 Urine Bilirubin Negative (NEGATIVE) 10/28/17 23:52 Urine Urobilinogen 0.2-1.0 mg/dL (0.2-1.0) 10/28/17 23:52 Ur Leukocyte Esterase Large Kimberly/uL (Negative) 10/28/17 23:52 Urine RBC (Auto) 9 /hpf (0-3) H 10/28/17 23:52 Urine Microscopic WBC 17 /hpf (0-5) H 10/28/17 23:52 Ur Squamous Epith Cells 19 /hpf (0-5) H 10/28/17 23:52 Urine Bacteria Mod (<OCC) H 10/28/17 23:52 - Hospital Course Hospital Course: OB Hospitalist Addendum: 21 yo G1 at 17 weeks transferred from [place] for RLQ pain, s/p Rocephin. Pt reports that she currently has no abdominal pain. On exam, pt appears comfortable lying in bed. Abdomen: soft, NT, gravid, no CVA tenderness. UA and urine cx c/w contaminated specimen. Urine culture ordered to be repeated this am. Pt cleared by surgery this am. Pt discharged home today, has f/u appoint at [facility] on 11/07/2017. (ES)
== END 2017-10-29 14:20 | disposition home or self-care (01) ==
LOC: H.ER 22:02 → H.ERHOLD 22:50 → H.MEDSURG1 10-28 03:43
PROVIDERS: ADMIT Obstetrics & Gynecology Gynecology; ATTEND Obstetrics & Gynecology Gynecology
DX: O23.42 Unspecified infection of urinary tract in pregnancy, second trimester (principal); Z3A.17 17 weeks gestation of pregnancy; K59.00 Constipation, unspecified
CPT/HCPCS: 36415; 74181; 76700; 80053; 81003; 85025; 87086; 96360; 96361; 99283; G0378; J7120

== ENCOUNTER 2017-11-25 12:39 | Emergency (ER) | payer MEDICAID ==
[2017-11-25 13:06] VITALS: BMI 27.9
[2017-11-25] MEDS ORDERED: Lactated Ringer's 500 ML IV SCH (13:45)
[2017-11-25 13:52] LABS: BASO % 0.2 % (0.0-2.0); EOS # 0.1 K/uL (0.0-0.7); EOS % 0.6 % (0.0-4.0); LYMPH # 1.5 K/uL (1.0-4.3); LYMPH % 12.7 % (20.0-40.0); MEAN CELL VOLUME 86.3 fl (81.0-99.0); MEAN CORPUSCULAR HEMOGLOBIN 27.9 pg (27.0-31.0); MEAN CORPUSCULAR HGB CONC 32.3 g/dL (33.0-37.0); MEAN PLATELET VOLUME 12.3 fl (7.2-11.7); MONO # 0.8 K/uL (0.0-0.8); MONO % 6.4 % (0.0-10.0); NEUT # 9.7 K/uL (1.8-7.0); NEUT % 80.1 % (50.0-75.0); RBC 3.59 Mil/uL (3.80-5.20); RED CELL DISTRIBUTION WIDTH 14.1 % (11.5-14.5); WHITE BLOOD COUNT 12.1 K/uL (4.8-10.8)
[2017-11-25 14:14] LABS: SQUAMOUS EPITHIAL 8 /hpf (0-5); URINE BACTERIA RARE (<OCC); URINE BILIRUBIN NEGATIVE (NEGATIVE); URINE BLOOD LARGE (NEGATIVE); URINE CLARITY CLOUDY (Clear); URINE COLOR YELLOW (YELLOW); URINE GLUCOSE (UA) NEG (Normal); URINE LEUKOCYTE ESTERASE MOD Leu/uL (Negative); URINE PROTEIN NEGATIVE (NEGATIVE); URINE UROBILINOGEN 0.2-1.0 mg/dL (0.2-1.0)
--- NOTE | 2017-11-25 15:31 | US ---
PROCEDURE: OB Pelvic Ultrasound HISTORY: Vaginal bleeding in 2nd trim . LMP: 04/10/2018 COMPARISON: None available. FINDINGS: UTERUS: Gestational sac: Single intrauterine gestation. Heart rate: 148 bpm. age (Ultrasound estimated): 22 weeks Camilla-gestational hemorrhage: None. Date of delivery (Ultrasound estimated) : 03/31/2018 Uterus is enlarged consistent with the patient's . CERVIX: Measures 3.1 cm. Long and closed. No cervical abnormality seen. RIGHT OVARY: Not well seen. LEFT OVARY: Not well seen. FREE FLUID: None. OTHER FINDINGS: Placenta is anterior and fundal in location without evidence of placenta previa. Placenta is grade 1. BPD: 55 millimeters, abdominal circumference: 167 millimeters, head circumference 197 millimeters. Femur length 36 millimeters. No retroplacental bleed is noted. There is cephalic presentation identified. There is a normal amount of amniotic fluid by visual inspection. Amniotic fluid index was 15.4. Internal os is clear. motion was noted. IMPRESSION: Single live intrauterine gestation with an estimated gestational age of 22 weeks. No prior study available for comparison to assess for radial growth. Patient should return for formal sonographic anatomy evaluation if this is not already been recently performed. No formal sonographic anatomy evaluation was performed on this emergency room setting examination. The exam was performed for vaginal bleeding. No retroplacental bleed is seen. No funneling within the cervix. Normal amount of amniotic fluid.
[2017-11-25 22:12] VITALS: BP 105/57; PULSE 95; RESP 18; TEMP 98.1
--- NOTE | 2017-11-26 08:00 | OBHP ---
Datetime: 11/25/2017 13:20 IP Adm Impression: , intrauterine ; No Active Labor IP Admit Plan: Observation/Evaluation Admit Comment, IP Provider: 21 y/o F at 21.5 weeks GA c/o vaginal bleeding that began at 01:30 am. Pt reports that vaginal bleeding started while urinating, no clots presents and described as same s as menses in qality and quantity. Pt reports having sexual intercourse yesterday afternoon. No CTX' s or LOF. Pt has never felt movement during her . Pt also c/o of constipation during t his . Pt does not follow a healthy diet. Pt denies fever, headache, dizziness, CP, SOB, abdo mane pain, urinary complaints or rash. NKDA Meds: PNV. OB Hx: . Regular menses with 3 days of bleeding. PN Care: [facility]. No pre-julio records available. PMHx: denied PSHx: denied FHx: No Hx of in family. SHx: No tobacco, alcohol or rec drugs. A/P: 21 y/o F with IUP at 21.5 weeks GA with vaginal bleeding. --IV LR 500 mL. --CBC, blood type and screen. --Urinalysis. --Continuous tocometer. --OB limites sonogram. --Will re-evaluate pt. --Pt instructed to increase water intake and fiber-rich food, vegetables and fruits. Case discussed with Dr retana, OB superintendent construction Pamela PGY-1 ob attending addendum: pt seen _ examined by me. states bleeding is dark blood like first day of menses and noted only wh en she goes to bathroom to void. addendum 2: d/c home increase water intake and dietary fiber- veget, fruits metamucil without Ca or Laxative. f/u this wk w/ ob Pelvic Type - PN: Adequate Extremities - PN: Normal Abdomen - PN: Normal Back - PN: Normal Lungs - PN: Normal Heart - PN: Normal Thyroid - PN: Normal HEENT - PN: Normal General - PN: Normal Comments, ACOG Physical Exam: -Bedside US: placenta not at the cervix. heart puming appreciate d. -Pelvic exam with speculum: Cervix is closed and no bleeding on vaginal vault. -Portable doppler by bedside showed a FH rate of 150s. addendum- clarification of above.: sse: no blood in vault/cvx: cl/th no blood on glove bedside us: anterior plac no evid of previa official us: anterior and fundal plac no suggestion of retroplac bleed; cvx 31mm kimberly 15. Pool Provider: Negative IP Hx Assessment: The History has been Reviewed and is Current Vital Signs Provider: Reviewed IP Chief Complaint: Vaginal bleeding Dilatation, Provider: 0 Genitourinary Exam: Normal
== END 2017-11-25 16:45 | disposition home or self-care (01) ==
LOC: H.EROB2 12:39
DX: O46.92 Antepartum hemorrhage, unspecified, second trimester (principal); Z3A.21 21 weeks gestation of pregnancy

== ENCOUNTER 2018-03-16 15:55 | Emergency (ER) | payer MEDICAID ==
[2018-03-16 16:14] VITALS: BMI 34.0
[2018-03-16] MEDS: Lactated Ringer's 1,000 ML IV SCH ×2 (17:30→20:45)
--- NOTE | 2018-03-16 17:42 | OBHP ---
Datetime: 03/16/2018 17:07 IP Adm Impression: Term, intrauterine IP Admit Plan: Observation/Evaluation Admit Comment, IP Provider: 22 yo g1 lmp 07/04 edc 04/02 by 15wk us was seen in ob clinic today for r outine visit. She c/o leakage of fluid noted 3days ago, small amount and 1wk ago. denies gush of flui d, vag bleeding, ctxs or decreased fm. reports good fm. denies fever, n/v NKDA Meds: PNV. feso4 bid OB Hx: . Regular menses with 3 days of bleeding. PN Care: [place] [facility] was in [facility] clinic. PMHx: denied PSHx: denied FHx: No Hx of in family. SHx: No tobacco, alcohol or rec drugs. i: 37.4wks no evid of srom on exam p: u/a, ivf hydration ob us for efw, kimberly Pelvic Type - PN: Adequate Extremities - PN: Normal Abdomen - PN: Normal Back - PN: Normal Lungs - PN: Normal Heart - PN: Normal Neurologic - PN: Normal HEENT - PN: Normal General - PN: Normal FHR - Baseline A Provider: 130 Membranes, Provider: Intact Comments, ACOG Physical Exam: SSE: cl/th/high no fluid in vault w/ and without valsalva nitrazine neg gbs neg, hiv neg _ rpr 09/28 _ 01/26 ri, HBsneg, O+, Quant neg +BV in 02/26 tx'd per pt Pool Provider: Negative Nitrazine Provider: Negative EGA AdmitDate IP: 37.4 Vital Signs Provider: Reviewed IP Chief Complaint: Suspected ruptured membranes NICHD Variability Prov Fetus A: Moderate 6-25bpm NICHD Accel Fetus A IP Provider: 15X15 FHR Category Provider Fetus A: Category I NICHD Decel Fetus A IP Provider: None Dilatation, Provider: 0 Effacement, Provider: 0 Station, Provider: -3 Genitourinary Exam: Normal
[2018-03-16 17:47] LABS: BASO # 0.1 K/uL (0.0-0.2); BASO % 0.4 % (0.0-2.0); EOS # 0.1 K/uL (0.0-0.7); EOS % 0.5 % (0.0-4.0); HEMOGLOBIN 10.3 g/dL (12.0-16.0); LYMPH # 1.7 K/uL (1.0-4.3); LYMPH % 12.1 % (20.0-40.0); MEAN CELL VOLUME 85.2 fl (81.0-99.0); MEAN CORPUSCULAR HEMOGLOBIN 27.7 pg (27.0-31.0); MEAN CORPUSCULAR HGB CONC 32.6 g/dL (33.0-37.0); MEAN PLATELET VOLUME 10.8 fl (7.2-11.7); MONO # 0.8 K/uL (0.0-0.8); MONO % 5.8 % (0.0-10.0); NEUT # 11.3 K/uL (1.8-7.0); NEUT % 81.2 % (50.0-75.0); RBC 3.71 Mil/uL (3.80-5.20); RED CELL DISTRIBUTION WIDTH 14.2 % (11.5-14.5); WHITE BLOOD COUNT 13.9 K/uL (4.8-10.8)
[2018-03-16 17:49] LABS: SQUAMOUS EPITHIAL 2 /hpf (0-5); URINE BACTERIA OCC (<OCC); URINE BILIRUBIN NEGATIVE (NEGATIVE); URINE CLARITY CLOUDY (Clear); URINE COLOR YELLOW (YELLOW); URINE GLUCOSE (UA) NEG (Normal); URINE LEUKOCYTE ESTERASE SMALL Leu/uL (Negative); URINE PROTEIN 30 mg/dL (NEGATIVE); URINE UROBILINOGEN 0.2-1.0 mg/dL (0.2-1.0)
[2018-03-16 17:50] LABS: URINE BLOOD TRACE (NEGATIVE)
--- NOTE | 2018-03-16 23:49 | OBHP ---
Datetime: 03/16/2018 22:39 IP Adm Impression: Term, intrauterine IP Admit Plan: Discharge home Admit Comment, IP Provider: Addendum: 22YO @ 37.6wks IUP is seen in [place] for SROM. 22:26: Pt seen and examined by bedside. Strip remains reactive Labs reviewed with pt. U/S Cervix is closed, C-length 4.5cm. ILIA 12.8. Baby is vertex, EFW 3131g UA sig for small leukes and bacteria; likely 2/2 to BV. Rx given for flagyl and clothrimazole in c linic today. Pt has the rx with her. 1x dose of flagyl now, and urine culture and sensitivity Cont abx as prescribed D/c home with follow up with Dr. Velazquez in [facility] obh addendum: pt seen by me w/ dr reyes. agree w/ above. imp of compliance with rx and risk of chorio if untreat ed d/w pt. Pt seen and examined with Dr. Shante Reyes, PGY II FHR - Baseline A Provider: 140 EGA AdmitDate IP: 37.4 Vital Signs Provider: Reviewed; Within Normal Limits IP Chief Complaint: Suspected ruptured membranes NICHD Variability Prov Fetus A: Moderate 6-25bpm NICHD Accel Fetus A IP Provider: 15X15 FHR Category Provider Fetus A: Category I
[2018-03-17 05:17] VITALS: BP 112/72; PULSE 83; RESP 17; TEMP 99.5; O2SAT 100
--- NOTE | 2018-03-17 08:19 | US ---
PROCEDURE: OB Pelvic Ultrasound HISTORY: us for ilia, efw, present LMP: 07/04/2017 COMPARISON: None available. FINDINGS: UTERUS: Placenta: Anterior. Presentation: Cephalic. BPD: 9.1 cm compatible with estimated gestational age of 36 weeks, 5 days. HC: 32.7 cm compatible with estimated gestational age is 37 weeks, 0 days. HC: 32.8 cm compatible with estimated gestational age of 36 weeks, 5 days FL: 7.5 cm compatible with estimated gestational age of 38 weeks, 4 days Heart rate: 127 bpm. age (Ultrasound estimated): 37 weeks, 2 days ILIA: 12.8 cm EFW 3137 grams 470.6 grams (6 pounds 15 ounces 1 pound 1 ounce) Camilla-gestational hemorrhage: None. Date of delivery (Ultrasound estimated) : 04/04/2018 CERVIX: Measures 4.5 cm. Long and closed. No cervical abnormality seen. FREE FLUID: None. OTHER FINDINGS: None. IMPRESSION: Single live intrauterine gestation with average ultrasound age of 37 weeks, 2 days. heart rate 127 beats per minute. ILIA 12.8 cm. Estimated weight 3137 grams 470.6 grams (6 pounds 15 ounces 1 pound 1 ounce). Cervix long and closed.
== END 2018-03-16 23:17 | disposition home or self-care (01) ==
LOC: H.EROB2 15:55
DX: O34.63 Maternal care for abnormality of vagina, third trimester (principal); N89.8 Other specified noninflammatory disorders of vagina; O47.1 False labor at or after 37 completed weeks of gestation; Z3A.37 37 weeks gestation of pregnancy
CPT/HCPCS: 76815; 81003; 85025; 87086; 96360; 96361; 99284; J7120

== ENCOUNTER 2018-03-23 03:48 | Emergency (ER) | payer MEDICAID ==
--- NOTE | 2018-03-23 12:01 | OBHP ---
Datetime: 03/23/2018 04:49 IP Adm Impression: Term, intrauterine IP Admit Plan: Observation/Evaluation; Discharge home Admit Comment, IP Provider: PNP: Dr. Olivares LMP: 07/04/2017 22 y/o G1PO at 38.6 wks with GIOVANNA 04/02/2018 is c/o loss of mucus blood at 12:30am followed by supra pubic pain since 1:15 am today. She states that her pain worsened at about 4am. movement occurr ed within past 5 minutes. Patient denied any vaginal bleeding or loss of fluid. OBGYNhx: no previous pregnancies, miscarriages or abortions PMH: none Famhx: none Sochx: no tobacco, EtOH or drugs Allergies: NKA Meds: vitamins, iron, ROS: denies any cp, sob, dysuria PE: Gen:well appearing female not in obvious pain Cardio: s1s2 no murmurs Resp: clear to auscultation Abd: BS+ Vag:cervix is closed Ext: calf nontender A/P: 22 y/o G1PO at 38.6 wks with GIOVANNA 04/02/2018. 1. FHR monitoring reassuring. 2. Will continue to observe. Case discussed with Dr. Nimo Wheeler PGY-1 OB Hospitalist Addendum: Pt seen and examined by me. Agree w/ above. 22 yo G1 at 38+4 wks c/o pa in in vagina, "feels like baby is pushing down." VE 1-2/ 65/ -3, anterior at 0835. Pt ate breakfast and was re-examined and found to be unchanged at 11:46am. Pt had an appoint w/ c linic today but was told to call and reschedule for next week. NST reactive. Pt discharged home w/ labor precautions. (ES) Extremities - PN: Normal Back - PN: Normal Lungs - PN: Normal Heart - PN: Normal General - PN: Normal FHR - Baseline A Provider: 130's Membranes, Provider: Intact Contraction Comments Provider: irregular EGA AdmitDate IP: 38.4 Vital Signs Provider: Reviewed IP Chief Complaint: Maternal discomfort NICHD Variability Prov Fetus A: Moderate 6-25bpm NICHD Accel Fetus A IP Provider: 15X15 FHR Category Provider Fetus A: Category I NICHD Decel Fetus A IP Provider: None Dilatation, Provider: 0 Genitourinary Exam: Normal
[2018-03-23 22:14] VITALS: BP 119/61; PULSE 90; RESP 20; TEMP 98.4; O2SAT 100
== END 2018-03-23 12:15 | disposition home or self-care (01) ==
LOC: H.EROB2 03:48
DX: O26.93 Pregnancy related conditions, unspecified, third trimester (principal); R10.2 Pelvic and perineal pain; O47.1 False labor at or after 37 completed weeks of gestation; Z3A.38 38 weeks gestation of pregnancy

== ENCOUNTER 2018-03-28 00:55 | Emergency (ER) | payer MEDICAID ==
[2018-03-28 06:36] VITALS: BP 108/71; PULSE 101; TEMP 98.7
== END 2018-03-28 02:00 | disposition home or self-care (01) ==
LOC: H.EROB2 00:55
DX: O47.1 False labor at or after 37 completed weeks of gestation (principal); O26.93 Pregnancy related conditions, unspecified, third trimester; R10.2 Pelvic and perineal pain; Z3A.39 39 weeks gestation of pregnancy

== ENCOUNTER 2018-04-06 15:01 | Emergency (ER) | payer MEDICAID ==
--- NOTE | 2018-04-06 16:44 | OBHP ---
Datetime: 04/06/2018 16:39 IP Adm Impression: Term, intrauterine ; No Active Labor IP Admit Plan: Observation/Evaluation; Discharge home Admit Comment, IP Provider: The patient is a 22-year-old 1 para 0 estimated due date 018 estimated gestational age 40+ weeks. Patient sent from [facility] secondary uterine contractions. Patient reports good movement no vaginal bleeding or leakage of fluid care unremarkable Past medical history none Past surgical history none No known drug allergies Social history denies alcohol tobacco use Review of systems patient denies headache chest pain shortness of breath palpitations nausea vomit ing diarrhea heat or cold intolerance easy bruisability musculoskeletal or neurological complaints Vital signs stable afebrile Physical exam see notes Intrauterine at 40+4 Latent labor Discharge home, movement precautions, labor precautions Patient scheduled for induction of labor at 41 weeks Patient agrees to plan of care Pelvic Type - PN: Adequate Extremities - PN: Normal Abdomen - PN: Normal Back - PN: Normal Breast - PN: Not Done Lungs - PN: Normal Heart - PN: Normal Thyroid - PN: Normal Neurologic - PN: Normal HEENT - PN: Normal General - PN: Normal Presentation-Admit: Vertex FHR - Baseline A Provider: 145 Gestation - Est Wks by US: 40.0 Pool Provider: Negative EGA AdmitDate IP: 40.4 Vital Signs Provider: Reviewed IP Chief Complaint: Uterine contractions; Maternal discomfort NICHD Variability Prov Fetus A: Moderate 6-25bpm NICHD Accel Fetus A IP Provider: 15X15 FHR Category Provider Fetus A: Category I NICHD Decel Fetus A IP Provider: None Dilatation, Provider: 1 Effacement, Provider: 50 Station, Provider: -2 Genitourinary Exam: Normal DTRs - PN: Normal
[2018-04-06 22:15] VITALS: BP 118/67; PULSE 85; RESP 20; TEMP 99; O2SAT 100
== END 2018-04-06 17:10 | disposition home or self-care (01) ==
LOC: H.EROB2 15:01
DX: O48.0 Post-term pregnancy (principal); Z3A.40 40 weeks gestation of pregnancy; O26.93 Pregnancy related conditions, unspecified, third trimester; R10.2 Pelvic and perineal pain

== ENCOUNTER 2018-04-08 20:36 | Inpatient (IN) | payer MEDICAID ==
[2018-04-08 21:53] VITALS: BMI 34.4
[2018-04-08] MEDS ORDERED: Lactated Ringer's 1,000 ML IV ONE (21:53)
[2018-04-08 22:28] VITALS: O2SAT 100
[2018-04-08] MEDS: Lactated Ringer's 1,000 ML IV SCH (23:00)
[2018-04-08 23:06] LABS: BASO % 0.3 % (0.0-2.0); EOS # 0.1 K/uL (0.0-0.7); EOS % 0.8 % (0.0-4.0); HEMOGLOBIN 10.6 g/dL (12.0-16.0); LYMPH # 1.8 K/uL (1.0-4.3); LYMPH % 14.6 % (20.0-40.0); MEAN CELL VOLUME 84.9 fl (81.0-99.0); MEAN CORPUSCULAR HEMOGLOBIN 27.2 pg (27.0-31.0); MEAN PLATELET VOLUME 11.3 fl (7.2-11.7); MONO # 0.8 K/uL (0.0-0.8); MONO % 6.8 % (0.0-10.0); NEUT # 9.3 K/uL (1.8-7.0); NEUT % 77.5 % (50.0-75.0); RBC 3.9 Mil/uL (3.80-5.20); RED CELL DISTRIBUTION WIDTH 14.8 % (11.5-14.5)
[2018-04-09] MEDS ORDERED: Nalbuphine HCL 10 mg/ml Ampule IVP PRN (05:06)
[2018-04-09] MEDS ORDERED: Lactated Ringer's 1,000 ML IV SCH (06:00)
[2018-04-09] MEDS ORDERED: Fentanyl/Bupivacaine HCl 250 ML EPI ONE ×2 (07:16→07:52)
--- NOTE | 2018-04-09 09:07 | OBADHP ---
Datetime: 04/08/2018 21:13 Admit Comment, IP Provider: Pt is a 22 yo 40.6wk with GIOVANNA 04/02/18 based on LMP 07/04/18 and 23w k U/s done 12/06/17. Patient states she felt SROM at 7:55pm, she was sitting on her bed and her bed sh eets were soaked under her then she felt fluid trickling down her leg in the ambulance. She was here on 04/06 due to latent labor and was D/c home with ER labor precautions at that time pt was 1cm dilate d. She was scheduled for an induction tomorrow at 41 wks, she receives her care from [facility] Dr. Olivares. Denies vaginal bleeding, or contractions. States good movements. Denies any dizzi ness, H/A, CP, SOB, NVDC, or burning with urination. OB Hx: Anemic during - takes Fe, Denies any complications with current GynHx: Denies hx of STI's, denies abnormal pap smears, last sexually active 1 month ago PNL: ABO: O+, all other labs unremarkable, Pt has not received PPD or TDAP PMHx: None Meds: Prenatals, Fe pills Allergies: NKDA FamHx: None Social Hx: Denies smoking, drinking alcohol, or drug use Surg Hx: None A/P 40.6wks IUP here for early labor SROM - Vaginal speculum exam + ROM, + Nitrazine test - Check for cervial dilation, 2cm dil, 80% effaced , -3 station - Admit to L _ D - IVF, CBC, type and screen - Cytotec 50mg q 4hr - Monitor heart tracings - Maintain NPO status, assess pain management prn Jeannie Werner M.D. PGY-1 Patient seen and case discussed with Dr. Mota Addendum by Dr. Mota: Pateint evaluated indepenently and I agree with the above Extremities - PN: Normal Abdomen - PN: Normal Lungs - PN: Normal Heart - PN: Normal HEENT - PN: Normal General - PN: Normal FHR - Baseline A Provider: 140-50's Amniotic Fluid Color, Provider: Clear Membranes, Provider: Ruptured Pool Provider: Positive Nitrazine Provider: Positive IP Hx Assessment: The History has been Reviewed and is Current IP Chief Complaint: Suspected ruptured membranes NICHD Variability Prov Fetus A: Moderate 6-25bpm NICHD Accel Fetus A IP Provider: [id number] FHR Category Provider Fetus A: Category I NICHD Decel Fetus A IP Provider: None Dilatation, Provider: 2 Effacement, Provider: 80 Station, Provider: -3 Genitourinary Exam: Normal EGA AdmitDate IP: 40.6 IP Adm Impression: Term, intrauterine Datetime: 04/06/2018 16:39 Pelvic Type - PN: Adequate Back - PN: Normal Breast - PN: Not Done Thyroid - PN: Normal Neurologic - PN: Normal Presentation-Admit: Vertex Gestation - Est Wks by US: 40.0 Vital Signs Provider: Reviewed DTRs - PN: Normal IP Admit Plan: Observation/Evaluation; Discharge home Datetime: 03/23/2018 04:49 Contraction Comments Provider: irregular Datetime: 03/16/2018 17:07 Comments, ACOG Physical Exam: SSE: cl/th/high no fluid in vault w/ and without valsalva nitrazine neg gbs neg, hiv neg _ rpr 09/28 _ 01/26 ri, HBsneg, O+, Quant neg +BV in 02/26 tx'd per pt
[2018-04-09] MEDS ORDERED: Oxytocin 30 UNITS in Sodium Chloride 0.9% 500 ML IV ONE (09:16)
[2018-04-09] MEDS: Lactated Ringer's 1,000 ML IV SCH (15:00)
[2018-04-09] MEDS ORDERED: Oxycodone/Acetaminophen 5/325 mg Tab PO PRN (17:24)
[2018-04-09] MEDS ORDERED: Benzocaine/Menthol SPRAY TOP PRN (17:24)
--- NOTE | 2018-04-09 18:18 | OBDS ---
DELIVERY PERSONNEL Delivery Doctor: Cristi Suarez MD Agricultural Agent: Siomara Bhatt RN/Josiah Resident: Dr. Jason Escobar MATERNAL INFORMATION Delivery Anesthesia: Epidural Medications in Delivery: Pitocin 30 units Estimated Blood Loss (ml): 200 Placenta Cultured: No Maternal Complications: None Provider Comments: 41wks/labor procedure: tight nuchal cord clamped and cut at perineum; ; repair of 1st degree laceration; pl acenta delivered spontaneously and intact ob: orossetos pgy1: odalys escobar ebl: 200cc findings: tight nuchal cord clamped and cut at perineum; viable male; 2/6/8; 3760g complic none cord blood sent neon to special care nursery pt remained in br LABOR SUMMARY EDC: 04/02/2018 00:00 No. Babies in Womb: 1 Attempted: No Labor Anesthesia: Epidural LABOR INFORMATION Reason for Induction: Not Applicable Reason for Induction Other: N/A Onset of Labor: 04/08/2018 19:55 Complete Dilatation: 04/09/2018 13:40 Cervical Ripening Agents: Cytotec @ (Annotations: first dose of cytotec 50mcg given ) Other Ripening Agents: N/A Oxytocin: N/A Group B Beta Strep: Negative Antibiotics # of Doses: 0 Antibiotics Time of Last Dose: N/A Steroids Given: None Reason Steroids Not Administered: Not Applicable Other Reason Not Administered: N/A MEMBRANES Membranes Rupture Method: Artificial Rupture of Membranes: 04/08/2018 19:55 Length of Rupture (hrs): 21.10 Amniotic Fluid Color: Clear Amniotic Fluid Amount: Small Amniotic Fluid Odor: Normal STAGES OF LABOR Stage 1 hrs: 17 Stage 1 min: 45 Stage 2 hrs: 3 Stage 2 min: 21 Stage 3 hrs: 0 Stage 3 min: 16 Total Time in Labor hrs: 21 Total Time in Labor min: 22 VAGINAL DELIVERY Episiotomy: None Laceration Extension: First Degree Laceration Type: Perineal Laceration Repair: Yes Laceration Repair Note: laceration repaired 3-0 polysorb Initial Vag Sponge Count: 5 laps with rings, 10 sponges. Final Vag Sponge Count: 5 laps with ring, 10 sponges Initial Vag Sharps Count: 1 suture, 1 needle Final Vag Sharps Count: 2 Sponge Count Correct: Yes Sharps Count Correct: Yes BABY A INFORMATION Infant Delivery Date/Time: 04/09/2018 17:01 Method of Delivery: Vaginal Born in Route : No : N/A Forceps: N/A Vacuum Extraction: N/A Shoulder Dystocia : No SHOULDER DYSTOCIA BABY A Delivery Date/Time: 04/09/2018 17:01 PRESENTATION/POSITION BABY A Presentation: Cephalic Cephalic Presentation: Vertex Breech Presentation: N/A PLACENTA INFORMATION BABY A Placenta Delivery Time : 04/09/2018 17:17 Placenta Method of Delivery: Spontaneous Placenta Status: Delivered SCORES BABY A Heart Rate 1 min: >100 bpm Resp Effort 1 min: Absent Reflex Irritability 1 min: No Response Muscle Tone 1 min: Flaccid Color 1 min: Blue/Pale Resuscitation Effort 1 min: Tactile Stimulation; Oxygen; PPV/NCPAP SCORE 1 MIN: 2 Heart Rate 5 min: >100 bpm Resp Effort 5 min: Slow, Irregular Reflex Irritability 5 min: Cough or Sneeze or Pulls Away Muscle Tone 5 min: Some Flexion of Extremities Color 5 min: Blue/Pale Resuscitation Effort 5 min: Tactile Stimulation; Oxygen SCORE 5 MIN: 6 Heart Rate 10 min: >100 bpm Resp Effort 10 min: Good Cry Reflex Irritability 10 min: Cough or Sneeze or Pulls Away Muscle Tone 10 min: Some Flexion of Extremities Color 10 min: Body [place], Extremities Blue Resuscitation Effort 10 min: N/A SCORE 10 MIN: 8 INFORMATION BABY A Gestational Age at Delivery: 41.0 Gestational Status: Term Outcome : Liveborn Infant Condition : Stable Sex: Male IDENTIFICATION/MEDS BABY A ID Band Number: [id number] ID Band Location: Left Leg; Left Arm Vitamin K Given : Not Given Erythromycin Given: Not Given WEIGHT/LENGTH BABY A Birthweight (gms): 3760 Weight (lb): 8 Infant Weight (oz): 5 CORD INFORMATION BABY A No. Cord Vessels: 3 Nuchal Cord : Around Neck x1, Tight Nuchal Cord Other: 0 Cord Blood Taken: Yes Infant Suction: Mouth; Nose ASSESSMENT BABY A Complications: None Physical Findings at Delivery: Molding of the Head Respirations: Grunting Immigration Officer/ALS Called : No Infant Care By: Dr. Aguilar, nursery nurse, R.W., Susana Rn, Jevon Rn (Annotations: Data store d by CPJuana on behalf of user) Transferred To: NICU
[2018-04-10] MEDS ORDERED: Oxycodone/Acetaminophen 5/325 mg Tab PO PRN (04:15)
[2018-04-10] MEDS ORDERED: Benzocaine/Menthol SPRAY TOP PRN (04:15)
[2018-04-10 06:39] LABS: BASO # 0.1 K/uL (0.0-0.2); BASO % 0.2 % (0.0-2.0); EOS % 0.1 % (0.0-4.0); HEMOGLOBIN 9.2 g/dL (12.0-16.0); LYMPH # 2.4 K/uL (1.0-4.3); LYMPH % 9.6 % (20.0-40.0); MEAN CELL VOLUME 83.9 fl (81.0-99.0); MEAN CORPUSCULAR HEMOGLOBIN 27.4 pg (27.0-31.0); MEAN CORPUSCULAR HGB CONC 32.7 g/dL (33.0-37.0); MEAN PLATELET VOLUME 10.9 fl (7.2-11.7); MONO # 2.1 K/uL (0.0-0.8); MONO % 8.5 % (0.0-10.0); NEUT # 20.2 K/uL (1.8-7.0); NEUT % 81.6 % (50.0-75.0); PLATELET COUNT 186 K/uL (130-400); RBC 3.34 Mil/uL (3.80-5.20); RED CELL DISTRIBUTION WIDTH 14.6 % (11.5-14.5); WHITE BLOOD COUNT 24.8 K/uL (4.8-10.8)
--- NOTE | 2018-04-10 07:04 | OBPPN ---
Datetime: 04/10/2018 07:00 PP Pain Prov: Within normal limits PP Abdomen/Uterus Prov: Normal PP Lochia Prov: Normal PP Extremities Prov: Normal PP Progress Prov: Normal PP Impression Prov: Normal progression PP Plan Prov: Continue present management PP Progress Note Prov: PPD 1 s/p , doing well, breast feeding Continue current care Vital Signs Provider PP: Reviewed; Within Normal Limits
[2018-04-10 09:42] LABS: LYMPHOCYTE 10 % (20-50); MONOCYTE 5 % (0-10); NEUTROPHIL 85 % (42-75); PLATELET ESTIMATE NORMAL (NORMAL); TOTAL CELLS COUNTED 100
[2018-04-10 09:44] LABS: HYPOCHROMIC SLIGHT; OVALOCYTES SLIGHT; SCHISTOCYTES SLIGHT; TOXIC GRANULATION PRESENT
--- NOTE | 2018-04-11 10:17 | OBDCSUM ---
Datetime: 04/11/2018 07:23 Discharged to, Provider: Home Follow up at, Provider: [facility] Disch Instr Activity: Normal activity Disch Instr Diet: Regular Discharge Instructions, Provider: Routine instructions given Discharge Diagnosis, Provider: Term Delivered Discharge Time: 04/11/2018 07:23 Follow up in weeks, Provider: 4-6 wks Post Contraception discussed, Prov: Yes Disch Activity Restrictions: No exercising; No lifting; Minimize stair-climbing; No sexual activity; Nothing in vagina - [place], tampons, douche Discharge Comment, Provider: Discharge Instructions: 1. Encouraged and ambulation 2. vitamin 1 tab po daily 3. Ibuprofen 600mg 1 tab as needed for mild pain 4. ER precautions: If excessive bleeding or fever without relief from medication, go to ED 5. Avoid stairs, exercising, heavy lifting 6. Nothing in vagina for 4-6weeks 7. Contraception post D/C- Possibly IUD 8. F/U at [facility] in 4-6 weeks for post- visit The patient was seen with the resident I agree with the note Contraception after Delivery: IUD
--- NOTE | 2018-04-11 10:17 | OBPPN ---
Datetime: 04/11/2018 07:20 PP Pain Prov: Within normal limits PP Nausea Prov: Denies PP Flatus Prov: Yes PP BM Prov: Yes PP Heart Prov: Normal PP Lungs Prov: Normal PP Abdomen/Uterus Prov: Normal PP Lochia Prov: Normal PP Extremities Prov: Normal PP C/S Incision Prov: Not Applicable PP Progress Prov: Normal PP Impression Prov: Normal progression PP Plan Prov: Continue present management PP Progress Note Prov: S: Pt is a 22 yo 40.6 wk s/p on 04/09/18 PPD 2. Seen and examined at bedside this am. Patient denies any significant overnight events. Reports mild pain which is contro lled with pain medicine. OOB/Ambulation well without dizziness. Breast and bottle feeding without dif ficulty. Tolerating regular diet. Lochia is similar to menses. Voiding freely with no blood noted, P atient has had a bowel movement, and is passing gas per rectum. Denies fever/chills, diarrhea, nausea /vomiting, CP/SOB, Lightheadedness. O: BP:105/64, HR:79, T98.5F CBC-10.6/33.1, blood type: O+, rubella: Immune PHYSICAL EXAM: GEN: AAOx3, Resting comfortably in bed, NAD HEENT: NCAT, White sclera, pink conjunctiva, oral mucosa moist. LUNGS: CTA B/L, no wheezing, rhonchi, or rales, B/L chest rise CVS: RRR, S1, S2, No murmurs, rubs, gallops ABD: ND, +BS, firm fundus @ umbilical level. Soft, appropriate TTP EXT: no edema, negative Leilani's sign, calves non tender NEURO/Psych: no gross focal deficit, preserved affect and mood. A/P 22 y/o post , had a on 04/09/18 @ 17:01. Pt afebrile, tolerating pain with medicati on, tolerating regular diet, adequate urine output. Encouraged breast feeding and ambulation Ibuprofen 600mg mild pain PNV 1 tab po daily Post op contraception- IUD F/U 4-6 weeks for post- visit at [facility] Jeannie Werner M.D. PGY-1 Patient was seen and case discussed with Dr. Vallejo The patient was seen with the resident I agree with the note IP PP Procedures: None Vital Signs Provider PP: Within Normal Limits
[2018-04-11 22:32] VITALS: BP 105/64; PULSE 79; RESP 20; TEMP 98.5
== END 2018-04-11 18:20 | disposition home or self-care (01) | DRG 373 ==
LOC: H.EROB2 20:36 → H.L&D 21:53 → H.OB/GYN 04-09 20:38
PROVIDERS: ADMIT Obstetrics & Gynecology; ATTEND Obstetrics & Gynecology
PROC: 10907ZC Drainage of Amniotic Fluid, Therapeutic from Products of Conception, Via Natural or Artificial Opening (ICD-10-PCS; 2018-04-08)
PROC: 4A1HXCZ Monitoring of Products of Conception, Cardiac Rate, External Approach (ICD-10-PCS; 2018-04-08)
PROC: 10E0XZZ Delivery of Products of Conception, External Approach (ICD-10-PCS; principal; 2018-04-09)
PROC: 0HQ9XZZ Repair Perineum Skin, External Approach (ICD-10-PCS; 2018-04-09)
DX: O48.0 Post-term pregnancy (principal); O69.1XX0 Labor and delivery complicated by cord around neck, with compression, not applicable or unspecified; O70.0 First degree perineal laceration during delivery; Z3A.41 41 weeks gestation of pregnancy; Z37.0 Single live birth